=== PATIENT | male | born 1975 | race African-American/Black ===

== ENCOUNTER 2023-09-02 13:53 | Emergency (ER) | payer BC ==
[~2023-09-02] VITALS: Ht 182.9 cm; Wt 79.4 kg
[2023-09-02 14:37] VITALS: BP 144/87; TEMP 98.4; O2SAT 98
[2023-09-02] MEDS ORDERED: IBUPROFEN 600 MG TABLET ONE (15:09)
[2023-09-02] MEDS ORDERED: CYCLOBENZAPRINE 10 MG TABLET ONE (15:09)
[2023-09-02] MEDS: IBUPROFEN 600 MG TABLET PO ONE (15:13)
[2023-09-02] MEDS: CYCLOBENZAPRINE 10 MG TABLET PO ONE (15:13)
[2023-09-02] MEDS ORDERED: CYCL5TAB PO (15:55)
[2023-09-02] MEDS ORDERED: KETO10TA2 PO (15:55)
== END 2023-09-02 15:59 | disposition home or self-care (01) ==
LOC: ER 13:57
DX: M25.512 Pain in left shoulder (principal); Z79.899 Other long term (current) drug therapy
CPT/HCPCS: 73030-TC